=== PATIENT | female | born 1975 | race African-American/Black ===

== ENCOUNTER 2016-08-17 08:17 | Emergency (ER) | payer OTHER ==
[~2016-08-17 08:17] MED LIST: ALDACTONE PO; ALPRAZOLAM PO; AMBIEN PO; AMIODARONE HCL100 MG PO; ARIXTRA2.5 MG/0.5 INJ; ASACOL400 MG PO; ASPIRIN PO; BUMEX1 MG PO; CAPTOPRIL PO; CARAFATE1 G; CARVEDILOL25 MG PO; COMBIVENT INH14.7 GM INH; COUMADIN PO; COUMADIN10 MG PO; HYDROCODONE-APA1 T58 PO; IMDUR-ER60 M1; K-DUR20 ME1 PO; KCL PO; KEFLEX PO; KEPPRA PO; KEPPRA750 MG PO; KLOR-CON PO; LANOXIN PO; LASIX PO; LEVAQUIN PO; LEVSIN PO; LIPITOR PO; LISINOPRIL PO; LOMOTIL TABLET1 TAB PO; LORTAB 7.5-5001 TAB PO; LOVENOX SUBQ; LOVENOX40 MG/0.4 INJ; MAGOX; MICRO-K PO; NIACIN PO; NORCO 10/325 TA1 TAB PO; OXYIR5 MG PO; PHENERGAN PO; PHENERGAN25 MG; PLAVIX PO; PREDNISONE PO; PROTONIX20 MG; ROXICODONE15 MG PO; ULTRAM PO; VICODIN 5/500 T1 TAB PO; VICODIN PO; XARELTO20 MG; ZANTAC PO; ZYRTEC PO
== END 2016-08-17 08:48 | disposition home or self-care (01) ==
LOC: SED 08:17
DX: M32.9 Systemic lupus erythematosus, unspecified (principal); I25.2 Old myocardial infarction; F17.200 Nicotine dependence, unspecified, uncomplicated; Z86.711 Personal history of pulmonary embolism; Z86.718 Personal history of other venous thrombosis and embolism; Z79.899 Other long term (current) drug therapy; Z79.82 Long term (current) use of aspirin; Z88.8 Allergy status to other drugs, medicaments and biological substances; Z88.6 Allergy status to analgesic agent; Z88.2 Allergy status to sulfonamides; Z88.1 Allergy status to other antibiotic agents
CPT/HCPCS: 96372; 99283; J1100

== ENCOUNTER 2016-08-24 10:38 | Emergency (ER) | payer OTHER ==
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
== END 2016-08-24 11:56 | disposition left against medical advice (07) ==
LOC: CED 10:38
DX: S49.91XA Unspecified injury of right shoulder and upper arm, initial encounter (principal); M32.9 Systemic lupus erythematosus, unspecified; I11.0 Hypertensive heart disease with heart failure; I50.9 Heart failure, unspecified; G43.909 Migraine, unspecified, not intractable, without status migrainosus; I25.10 Atherosclerotic heart disease of native coronary artery without angina pectoris; I25.2 Old myocardial infarction; F41.9 Anxiety disorder, unspecified; Z90.49 Acquired absence of other specified parts of digestive tract; W50.0XXA Accidental hit or strike by another person, initial encounter; Y92.009 Unspecified place in unspecified non-institutional (private) residence as the place of occurrence of the external cause
CPT/HCPCS: 73030; 96372; 99283; J2930